=== PATIENT | male | born 1950 | race Caucasian/White ===

== ENCOUNTER → 2016-08-01 | Day surgery (SDC) | payer MEDICARE, OTHER ==
[~2016-08-01] MED LIST: BUPIVACAINE/EPINEPHRINE 0.25% 50 ML VIAL ONE; LACTATED RINGER'S 1000 ML INJ 1,000 ML ONE; LIDOCAINE 1%/EPINEPHrine 1:100,000 SOLN 50 ML VIAL ONE; MIDAZOLAM HCL 2 MG/2 ML VIAL ONE; MINERAL OIL 10 ML VIAL ONE; ONDANSETRON HCL 4 MG/2 ML VIAL IV PUSH ONE; PROPOFOL 200 MG/20 ML AMP IV ONE; SODIUM BICARBONATE 8.4% INJ 50 ML ONE; ceFAZolin 2 GM PREMIX 50 ML ONE
--- NOTE | 2016-08-01 12:38 | MP ---
cc: CHECO BENDER M.D. DATE OF SURGERY 08/01/2016 PREOPERATIVE DIAGNOSIS Basal cell carcinoma mid-upper back midline, large lesion. POSTOPERATIVE DIAGNOSIS Basal cell carcinoma mid-upper back midline, large lesion. OPERATION Wide local excision of basal cell carcinoma, 6-cm diameter excision, attempted frozen section and double rotation flap closure. SURGEON Dr. Bender. ANESTHESIA General. INDICATIONS A 65-year-old white male with a large ulcerated, fungating biopsy-proven basal cell carcinoma of the upper thoracic midline spine area. The lesion is approximately 1.5 cm ulcerated and about 2.5 cm palpable lesion and a margin of 1 cm was taken more so in the vertical portion as well. The patient was explained the overall surgery, excision and frozen section process. The frozen section could not be done, according to the pathologist, because of the large size of the specimen and too much fatty tissue. Only permanent section was sent. The closure required two double rotation flaps from each side. PROCEDURE The patient was brought to the operating room, was given supine position. Anesthesia was started in the supine position. He was turned prone on the table with adequate support. Prep and drape was done. Time-out was called and completed. The preoperative markings were reinforced. Tumescent solution of saline and lidocaine with epi was used to hydrodissect and for hemostasis. The specimen was taken from skin straight down to the fascia and the fascia was removed with the specimen as well leaving the bare muscle open. The specimen was suture marked superior and sent for frozen section. Two rotational flaps were outlined starting from 12 o'clock and the 6 o'clock position and going to 3 o'clock and 9 o'clock and slightly beyond as needed. The flaps were developed right down to the fascia and lifted off the fascia while assessing the overall positioning and tension on the flap. Once adequate release was obtained, the flaps were transposed and sutured with a combination of Vicryl and Prolene sutures. A Sonny drain was inserted through the entire pocket and brought out on both sides. The call received from the pathology department indicated that the specimen was too large and also too much fat to freeze and their recommendation was only to do a permanent section in order to avoid prolonged processing and artifact, etc. The patient remained stable through the surgery. Intraoperative blood loss 15-20 cc. No complications. signed, not fully reviewed MD ELVIRA Branch/EVER /9:24 AM /12:28 PM [facility]
== END | disposition home or self-care (01) ==
LOC: ESDC 06:56
PROVIDERS: ATTEND Plastic Surgery
DX: C44.519 Basal cell carcinoma of skin of other part of trunk (principal)
CPT/HCPCS: 00300; 14001; 88305; J0690; J2250; J2405; J3010; J7120

== ENCOUNTER 2017-02-02 21:59 | Inpatient (IN) | payer MEDICARE ==
[~2017-02-02] VITALS: Ht 188 cm; Wt 71.5 kg
[2017-02-02] MEDS ORDERED: IOHEXOL 350 MG/ML 10 ML VIAL (for RAD DIAG) IVCONTRAST ONE (22:00)
[2017-02-02 22:06] VITALS: BP 158/88; PULSE 74; RESP 16; TEMP 97.7; O2SAT 95
--- NOTE | 2017-02-02 22:22 | PD ---
HPI Chief Complaint: Abdominal Pain Time Seen by Provider: 22:10 Travel History International Travel<30 days: No Contact w/Intl Traveler<30days: No Traveled to known affect area: No History of Present Illness HPI 66-year-old male here for evaluation of abdominal pain. The patient presented for the last 9 hours he has been having moderate/intermittent/mid abdominal pain that he describes as cramping. There are no modifying factors. He did become nauseous and had a couple episodes of dry heaves. His last bowel movement was at 2 PM and was normal. History of inguinal hernia repair. No other abdominal surgeries. No fevers. No chest pain or dyspnea. No urinary symptoms. He reports that he had a colonoscopy 3 years ago and it was normal. [facility] Past Medical History Diabetes: Yes (DIET CONTROLLED) Patient Takes Glucophage: No Inguinal Hernia: Yes Past Surgical History Abdominal Surgery: Yes (INGUINAL HERNIA REPAIR) Social History Alcohol Use: Yes ([facility]) Tobacco Use: No Substance Use: No Allergies-Medications (Allergen,Severity, Reaction): Coded Allergies: No Known Allergies (Unverified , 02/02/17) Review of Systems Except as stated in HPI: all other systems reviewed are Neg Physical Exam Narrative GENERAL: Well-developed, well-nourished, comfortable, no apparent distress. SKIN: Focused skin assessment warm/dry. HEAD: Atraumatic. Normocephalic. EYES: Pupils equal and round. No scleral icterus. No injection or drainage. ENT: Mucous membranes pink and moist. NECK: Trachea midline. No JVD. CARDIOVASCULAR: Regular rate and rhythm. RESPIRATORY: No accessory muscle use. Clear to auscultation. Breath sounds equal bilaterally. GASTROINTESTINAL: Abdomen soft, nondistended. Moderate periumbilical tenderness without peritoneal signs. Rest of abdomen is soft and nontender. Normal bowel sounds. No hernias. MUSCULOSKELETAL: No obvious deformities. No clubbing. No cyanosis. No edema. NEUROLOGICAL: Awake and alert. No obvious cranial nerve deficits. Motor grossly within normal limits. Normal speech. PSYCHIATRIC: Appropriate mood and affect; insight and judgment normal. Data Data Last Documented VS Vital Signs Date Time Temp Pulse Resp B/P (MAP) Pulse Ox O2 Delivery O2 Flow Rate FiO2 02/02/17 23:45 14 02/02/17 22:30 95 Room Air 02/02/17 22:06 97.7 74 158/88 (111) Orders Orders Complete Blood Count With Diff (02/02/17 22:19) Comprehensive Metabolic Panel (02/02/17 22:19) Lipase (02/02/17 22:19) Prothrombin Time / Inr (Pt) (02/02/17 22:19) Act Partial Throm Time (Ptt) (02/02/17 22:19) Urinalysis - C+S If Indicated (02/02/17 22:19) Ct Abd/Pel W Iv Contrast(Rout) (02/02/17 22:19) Iv Access Insert/Monitor (02/02/17 22:19) Ecg Monitoring (02/02/17 22:19) Oximetry (02/02/17 22:19) Sodium Chloride 0.9% Flush (Ns Flush) (02/02/17 22:30) Morphine Inj (Morphine Inj) (02/02/17 23:00) Ondansetron Inj (Zofran Inj) (02/02/17 23:00) Iohexol 350 Inj (Omnipaque 350 Inj) (02/02/17 22:00) [place]-Gastric Tube Insert/Mon (02/03/17 00:06) Chest, Single Ap (02/03/17 ) Diet Npo (02/03/17 Breakfast) Admit Order (Ed Use Only) (02/03/17 00:37) Consult General Surgery (02/03/17 ) (Hub Use Only)Inp Phy Cons/Ref (02/03/17 ) Labs Laboratory Tests Test 02/02/17 22:35 White Blood Count 11.4 TH/MM3 Red Blood Count 4.92 MIL/MM3 Hemoglobin 14.5 GM/DL Hematocrit 43.6 % Mean Corpuscular Volume 88.7 FL Mean Corpuscular Hemoglobin 29.5 PG Mean Corpuscular Hemoglobin Concent 33.3 % Red Cell Distribution Width 13.0 % Platelet Count 165 TH/MM3 Mean Platelet Volume 8.5 FL Neutrophils (%) (Auto) 86.4 % Lymphocytes (%) (Auto) 6.8 % Monocytes (%) (Auto) 4.1 % Eosinophils (%) (Auto) 0.2 % Basophils (%) (Auto) 2.5 % Neutrophils # (Auto) 9.9 TH/MM3 Lymphocytes # (Auto) 0.8 TH/MM3 Monocytes # (Auto) 0.5 TH/MM3 Eosinophils # (Auto) 0.0 TH/MM3 Basophils # (Auto) 0.3 TH/MM3 CBC Comment DIFF FINAL Differential Comment Prothrombin Time 11.3 SEC Prothromb Time International Ratio 1.0 RATIO Activated Partial Thromboplast Time 26.8 SEC Urine Color YELLOW Urine Turbidity CLEAR Urine pH 6.5 Urine Specific Baird 1.026 Urine Protein NEG mg/dL Urine Glucose (UA) NEG mg/dL Urine Ketones 15 mg/dL Urine Occult Blood NEG Urine Nitrite NEG Urine Bilirubin NEG Urine Leukocyte Esterase NEG Urine RBC 0-2 /hpf Urine WBC 0-2 /hpf Urine Squamous Epithelial Cells 0-5 /hpf Urine Bacteria NONE /hpf Microscopic Urinalysis Comment CULT NOT INDICATED Blood Urea Nitrogen 21 MG/DL Creatinine 1.10 MG/DL Random Glucose 131 MG/DL Total Protein 6.9 GM/DL Albumin 3.7 GM/DL Calcium Level 8.6 MG/DL Alkaline Phosphatase 60 U/L Aspartate Amino Transf (AST/SGOT) 21 U/L Alanine Aminotransferase (ALT/SGPT) 29 U/L Total Bilirubin 0.6 MG/DL Sodium Level 132 MEQ/L Potassium Level 4.2 MEQ/L Chloride Level 99 MEQ/L Carbon Dioxide Level 25.4 MEQ/L Anion Gap 8 MEQ/L Estimat Glomerular Filtration Rate 67 ML/MIN Lipase 97 U/L MDM Medical Decision Making Medical Screen Exam Complete: Yes Emergency Medical Condition: Yes Differential Diagnosis Colitis, diverticulitis, appendicitis, peptic ulcer disease, pancreatitis, hepatobiliary disease, mesenteric ischemia Narrative Course Vital signs show heart rate 74, blood pressure 158/88, pulse ox 95% on room air , oral temp of 97.7F. CBC: WBC 11.4, hemoglobin 14.5, hematocrit 43.6, platelets 165, neutrophils 86.4 %. CMP: Sodium 132, otherwise unremarkable. Lipase is 97. UA shows 15 ketones, otherwise unremarkable, not suggestive of UTI. CT abdomen pelvis: CONCLUSION: 1. Dilated small bowel suggesting distal small bowel obstruction. No obstructing mass or lesion appreciated. No inflammatory process or free air. Small volume free fluid. 2. Elevated left hemidiaphragm. Patient and the patient's significant other were made aware of all findings. His pain has gone from a 6 out of 10 to 2 out of 10 after IV morphine. He has felt nauseous and has had a couple episodes of retching at home, however has not been vomiting. Plan is to place an NG tube and have the patient admitted for further treatment and evaluation of small bowel obstruction. Case discussed with [facility] hospitalist Dr Roberto. He requests that I contact the civil litigation attorney [facility] surgeon before admitting the patient. Case discussed with on lainey [facility] surgeon Dr Coreas. He agrees with plan for NG tube placement to low intermittent suction. He would like repeat labs as well as a KUB in the morning. He will see the patient in consultation. Case again discussed with Dr Roberto who will admit the patient to his service. He would like the patient to be admitted to the [facility] in [facility]. Procedures Procedure Narrative NG tube placement: Small amount of lubricant jelly was placed at the end of a 14 Pashto NG tube. NG tube was inserted slowly into the patient's right naris to the posterior pharynx. Patient was then asked to swallow water, and the tube passed into the patient's esophagus. Tube secured to the patient's nose. When area is flushed through the tube inserted over the area of the stomach. Postprocedural chest x- ray ordered to confirm NG tube placement. Diagnosis Primary Impression: Small bowel obstruction Admitting Information Admitting Physician Requests: Admit Karlos Garg MD Feb 02, 2017 22:22
[2017-02-02 22:30] VITALS: BP 141/88; PULSE 63; RESP 14; RESP 18; O2SAT 94; O2SAT 95
[2017-02-02] MEDS ORDERED: SODIUM CHLORIDE 0.9% FLUSH 10 ML FLUSH IV FLUSH PRN (22:30)
[2017-02-02 22:44] LABS: BLOOD, URINE NEG (NEG); GLUCOSE,URINE NEG (NEG); KETONE, URINE 15 mg/dL (NEG); NITRITE,URINE NEG (NEG); PH, URINE 6.5 (5.0-8.5)
[2017-02-02 22:46] LABS: AUTOMATED NEUTROPHIL # 9.9 TH/MM3 (1.8-7.7); BASOPHIL # 0.3 TH/MM3 (0-0.2); BASOPHIL % 2.5 % (0.0-2.0); EOSINOPHIL % 0.2 % (0.0-4.0); HEMATOCRIT 43.6 % (39.0-51.0); HEMO FLAGS DIFF FINAL; LYMPH % 6.8 % (9.0-44.0); LYMPHOCYTE # 0.8 TH/MM3 (1.0-4.8); MEAN CELL VOLUME 88.7 FL (80.0-100.0); MEAN CORPUSCULAR HEMOGLOBIN 29.5 PG (27.0-34.0); MEAN CORPUSCULAR HGB CONC 33.3 % (32.0-36.0); MONO % 4.1 % (0.0-8.0); NEUT % 86.4 % (16.0-70.0); PLATELET COUNT 165 TH/MM3 (150-450); RED BLOOD COUNT 4.92 MIL/MM3 (4.50-5.90); WHITE BLOOD COUNT 11.4 TH/MM3 (4.0-11.0)
[2017-02-02 22:49] LABS: URINE COLOR YELLOW (YELLW/STRAW)
[2017-02-02 22:50] LABS: COMMENT (UR) CULT NOT INDICATED; CULTURE IF INDICATED CULT NOT INDICATED; RBC, URINE 0-2 /hpf (0-3); SQUAMOUS EPITHELIAL CELL URINE 0-5 /hpf (0-5); WBC, URINE 0-2 /hpf (0-5)
[2017-02-02 22:52] LABS: CHLORIDE 99 MEQ/L (98-107); POTASSIUM 4.2 MEQ/L (3.5-5.1); SODIUM (NA) 132 MEQ/L (136-145)
[2017-02-02 22:56] LABS: ANION GAP 8 MEQ/L (5-15); BICARBONATE 25.4 MEQ/L (21.0-32.0)
[2017-02-02 22:57] LABS: BLOOD UREA NITROGEN 21 MG/DL (7-18)
[2017-02-02 22:58] LABS: APTT (PATIENT) 26.8 SEC (24.3-30.1); PROTHROMBIN TIME - PATIENT 11.3 SEC (9.8-11.6)
[2017-02-02 22:59] LABS: ALT (GPT) 29 U/L (12-78); AST (GOT) 21 U/L (15-37); GLOMERULAR FILTRATION RATE 67 ML/MIN (>89)
[2017-02-02] MEDS ORDERED: MORPHINE SULFATE 4 MG/ML INJ IV PUSH ONE (23:00)
[2017-02-02] MEDS ORDERED: ONDANSETRON HCL 4 MG/2 ML VIAL IV PUSH ONE (23:00)
[2017-02-02 23:01] LABS: TOTAL BILIRUBIN ADULT 0.6 MG/DL (0.2-1.0)
[2017-02-02 23:02] LABS: ALKALINE PHOSPHATASE 60 U/L (45-117)
--- NOTE | 2017-02-02 23:49 | RADRPT ---
EXAM DATE/TIME: 02/02/2017 23:10 [facility] COMPARISON: No previous studies available for comparison. INDICATIONS : Abdominal pain and cramping IV CONTRAST: 96 cc Omnipaque 350 (iohexol) IV ORAL CONTRAST: No oral contrast ingested. RADIATION DOSE: 7.6 CTDIvol (mGy) MEDICAL HISTORY : None SURGICAL HISTORY : Inguinal hernia repair. ENCOUNTER: Initial ACUITY: 1 day PAIN SCALE: 10/10 LOCATION: middle abdomen TECHNIQUE: Volumetric scanning of the abdomen and pelvis was performed. Using automated exposure control and ad justment of the mA and/or kV according to patient size, radiation dose was kept as low as reasonably achievable to obtain optimal diagnostic quality images. DICOM format image data is available electro nically for review and comparison. FINDINGS: LOWER LUNGS: The visualized lower lungs are clear. LIVER: Homogeneous density without lesion. There is no dilation of the biliary tree. No calcified gallston es. SPLEEN: Normal size without lesion. PANCREAS: Within normal limits. KIDNEYS: Normal in size and shape. There is no mass, stone or hydronephrosis. ADRENAL GLANDS: Within normal limits. VASCULAR: There is no aortic aneurysm. BOWEL/MESENTERY: Multiple dilated loops of fluid and gas-filled small bowel within the upper abdomen. This slowly tape rs within the left lower quadrant. No focal transition point observed. No inflammatory change appreci ated. The distal small bowel and colon are normal in caliber. A small amount of free fluid deep withi n the pelvis. No free air. ABDOMINAL WALL: Surgical clips suggesting prior left spigelian hernia repair. RETROPERITONEUM: There is no lymphadenopathy. BLADDER: No wall thickening or mass. REPRODUCTIVE: Within normal limits. INGUINAL: There is no lymphadenopathy or hernia. MUSCULOSKELETAL: Within normal limits for patient age. CONCLUSION: 1. Dilated small bowel suggesting distal small bowel obstruction. No obstructing mass or lesion appre ciated. No inflammatory process or free air. Small volume free fluid. 2. Elevated left hemidiaphragm. George Mcdaniel Jr., MD on February 02, 2017 at 23:44 Board Certified Radiologist. This report was verified electronically.
[2017-02-03] VITALS (10 sets, daily range): BP systolic 139–162; BP diastolic 84–95; PULSE 58–98; RESP 16–18; TEMP 96.3–97.3; O2SAT 93–97
--- NOTE | 2017-02-03 00:49 | RADRPT ---
EXAM DATE/TIME: 02/03/2017 00:37 [facility] COMPARISON: No previous studies available for comparison. INDICATIONS : Post NG tube placement. MEDICAL HISTORY : None. SURGICAL HISTORY : Inguinal hernia repair ENCOUNTER: Initial ACUITY: 1 day PAIN SCORE: 6/10 LOCATION: Bilateral buttock FINDINGS: A single view of the chest demonstrates the lungs to be symmetrically aerated without evidence of mas s, infiltrate or effusion. There is significant elevation of left hemidiaphragm. Nasogastric tube tip is seen within the body of the stomach which is elevated with hemidiaphragm. Gas-filled loops of bow el are seen below the left hemidiaphragm. The cardiomediastinal contours are unremarkable. Osseous structures are intact. CONCLUSION: 1. Clear lungs. 2. Elevated left hemidiaphragm. 3. Tip of the NG tube within the stomach. George Mcdaniel Jr., MD on February 03, 2017 at 0:46 Board Certified Radiologist. This report was verified electronically.
[2017-02-03] MEDS ORDERED: ONDANSETRON HCL 4 MG/2 ML VIAL IV PUSH PRN (01:15)
[2017-02-03] MEDS: MORPHINE SULFATE 2 MG/ML INJ IV PUSH PRN ×5 (05:49→22:19)
[2017-02-03 07:58] LABS: AUTOMATED NEUTROPHIL # 9.6 TH/MM3 (1.8-7.7); BASOPHIL % 0.2 % (0.0-2.0); EOSINOPHIL % 0.2 % (0.0-4.0); HEMATOCRIT 44.6 % (39.0-51.0); HEMO FLAGS DIFF FINAL; LYMPH % 9.3 % (9.0-44.0); LYMPHOCYTE # 1.1 TH/MM3 (1.0-4.8); MEAN CELL VOLUME 90.3 FL (80.0-100.0); MEAN CORPUSCULAR HEMOGLOBIN 29.9 PG (27.0-34.0); MEAN CORPUSCULAR HGB CONC 33.2 % (32.0-36.0); MONO % 6.2 % (0.0-8.0); NEUT % 84.1 % (16.0-70.0); PLATELET COUNT 162 TH/MM3 (150-450); RED BLOOD COUNT 4.95 MIL/MM3 (4.50-5.90); RED CELL DISTRIBUTION WIDTH 13.9 % (11.6-17.2); WHITE BLOOD COUNT 11.4 TH/MM3 (4.0-11.0)
--- NOTE | 2017-02-03 08:03 | RADRPT ---
EXAM DATE/TIME: 02/03/2017 07:53 [facility] COMPARISON: CHEST SINGLE AP, February 03, 2017, 0:37. INDICATIONS : Abdominal pain and cramping. Obstruction. MEDICAL HISTORY : None. SURGICAL HISTORY : Inguinal hernia repair. ENCOUNTER: Subsequent ACUITY: 2 days PAIN SCORE: 8/10 LOCATION: Bilateral abdomen FINDINGS: The examination demonstrates mild, diffuse gaseous distention of the small bowel and ascending colon. There is a moderate amount of stool within the ascending colon as well. There is an NG tube in good position. 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 There is contrast within the bladder. There surgical clips overlying the left lower quadrant of the p edgar. CONCLUSION: 1. Air-filled, minimally distended loops of predominantly small bowel suggesting ileus. There is gas and stool within the colon. No definite findings to indicate obstruction are seen. Elder Burdick MD on February 03, 2017 at 8:01 Board Certified Radiologist. This report was verified electronically.
[2017-02-03] MEDS ORDERED: DIATRIZOATE MEGLUM/DIATRIZOATE SOD 120 ML BTL (for RAD DIAG) NG ONE (08:50)
[2017-02-03] MEDS ORDERED: ACETAMINOPHEN 1000 MG/100 ML VIAL IV PRN (10:30)
--- NOTE | 2017-02-03 10:46 | HHI.HP ---
HPI Service [facility] Hospitalists Primary Care Physician Nash Desai MD Admission Diagnosis Small Bowel Obstruction Chief Complaint: Abdominal pain Travel History International Travel<30 Days: No Contact w/Intl Traveler <30 Da: No Traveled to Known Affected Are: No History of Present Illness Mr. Zhao is a pleasant 66 y/o WM without significant PMH other than osteoarthritis and he had a previous ventral hernia repair with mesh placement around 10 years ago who presented to the ED at [facility] [place] on 02/02/17 with complaints of significant abdominal pain and nausea with dry heaves. He states that he was in his normal state of health yesterday. He had eaten breakfast without any issues. Pt ate a ham and cheese sandwich for lunch yesterday and about an hour after he had eaten he started having increased lower abdominal cramping and nausea. He had a normal BM after this but this did not improve the pain. The pain/cramping seemed to worsen and he began having increased abdominal distension and nausea with dry heaves. This prompted him to go to the ED for further evaluation. CT Abd/pelvis in the ED revealed dilated small bowel suggesting distal small bowel obstruction, no obstructing mass or lesion appreciated, no inflammatory process or free air, small volume free fluid, and elevated left hemidiaphragm. Pt had an NGT placed in the ED and he was transferred to [facility] for general surgery evaluation. Pt reports that he is still having abd pain and cramping which is slightly relieved with the Morphine. Denies any flatus or vomiting. He currently has about 200cc of clear fluid in the NG canister. Pt denies any previous similar episodes. His states that the pt has had a weight loss of about 10lbs over the last 6-8 months but that the patient changed his diet and cut out a lot of the sugars and junk food he was eating and he has been working out a bit more because he was labeled as "pre-diabetic" in May 2016. Repeat KUB this morning noted air-filled, minimally distended loops of predominantly small bowel suggesting ileus, gas and stool within the colon but no definite findings to indicate obstruction are seen. Review of Systems Constitutional: COMPLAINS OF: Weight loss, DENIES: Fever, Dizziness Eyes: DENIES: Vision loss Ears, nose, mouth, throat: DENIES: Hearing loss Respiratory: DENIES: Cough, Shortness of breath Cardiovascular: DENIES: Palpitations, Lower Extremity Edema Gastrointestinal: COMPLAINS OF: Abdominal pain, Nausea, DENIES: Constipation, Diarrhea, Vomiting Genitourinary: DENIES: Dysuria Musculoskeletal: DENIES: Back pain Integumentary: DENIES: Rash Neurologic: DENIES: Headache Psychiatric: DENIES: Confusion Past Family Social History Past Medical History Osteoarthritis Hx of ventral hernia Past Surgical History Ventral hernia repair with mesh placement ~ 10 years ago Right knee surgery x 4 Left knee surgery x 1 BCC removal from trunk Tonsillectomy Colonoscopy ~ 2011, negative per the pt Reported Medications No prescribed home medications Allergies: Coded Allergies: No Known Allergies (Unverified , 02/02/17) Family History Daughter and mother with celiac disease Social History Occasional alcohol use, 2 beers and occasionally wine 2-3 times per week Denies any tobacco use Pt is and lives locally He work in computer software quality engineer Physical Exam Vital Signs Vital Signs Date Time Temp Pulse Resp B/P (MAP) Pulse Ox O2 Delivery O2 Flow Rate FiO2 02/03/17 08:00 97.3 63 17 148/91 (110) 94 02/03/17 02:50 97.1 60 17 158/92 (114) 94 02/03/17 02:15 68 16 145/87 (106) 94 02/03/17 01:35 16 02/03/17 01:30 58 16 142/84 (103) 93 Room Air 02/03/17 00:35 63 16 143/92 (109) 94 Room Air 02/02/17 23:45 14 02/02/17 22:30 14 95 Room Air 02/02/17 22:30 63 18 141/88 (105) 94 Room Air 02/02/17 22:06 97.7 74 16 158/88 (111) 95 Physical Exam GENERAL: This is a well-nourished, well-developed patient, in no apparent distress. HEENT: Atraumatic. Normocephalic. No temporal or scalp tenderness. No scleral icterus. Airway patent. NECK: Trachea midline, supple, nontender. CARDIO: Regular. RESP: CTA bilaterally. No wheezes, rales, or rhonchi. ABD: Minimal BS, soft, non-tender, nondistended. EXT: Extremities without clubbing, cyanosis, or edema. NEURO: Awake and alert. Motor and sensory grossly within normal limits. Normal speech. Laboratory Laboratory Tests Test 02/02/17 22:35 02/03/17 07:27 White Blood Count 11.4 11.4 Red Blood Count 4.92 4.95 Hemoglobin 14.5 14.8 Hematocrit 43.6 44.6 Mean Corpuscular Volume 88.7 90.3 Mean Corpuscular Hemoglobin 29.5 29.9 Mean Corpuscular Hemoglobin Concent 33.3 33.2 Red Cell Distribution Width 13.0 13.9 Platelet Count 165 162 Mean Platelet Volume 8.5 8.6 Neutrophils (%) (Auto) 86.4 84.1 Lymphocytes (%) (Auto) 6.8 9.3 Monocytes (%) (Auto) 4.1 6.2 Eosinophils (%) (Auto) 0.2 0.2 Basophils (%) (Auto) 2.5 0.2 Neutrophils # (Auto) 9.9 9.6 Lymphocytes # (Auto) 0.8 1.1 Monocytes # (Auto) 0.5 0.7 Eosinophils # (Auto) 0.0 0.0 Basophils # (Auto) 0.3 0.0 CBC Comment DIFF FINAL DIFF FINAL Differential Comment Prothrombin Time 11.3 Prothromb Time International Ratio 1.0 Activated Partial Thromboplast Time 26.8 Urine Color YELLOW Urine Turbidity CLEAR Urine pH 6.[address] [place] 1.026 Urine Protein NEG Urine Glucose (UA) NEG Urine Ketones 15 Urine Occult Blood NEG Urine Nitrite NEG Urine Bilirubin NEG Urine Leukocyte Esterase NEG Urine RBC 0-2 Urine WBC 0-2 Urine Squamous Epithelial Cells 0-5 Urine Bacteria NONE Microscopic Urinalysis Comment CULT NOT INDICATED Blood Urea Nitrogen 21 Creatinine 1.10 Random Glucose 131 Total Protein 6.9 Albumin 3.7 Calcium Level 8.6 Alkaline Phosphatase 60 Aspartate Amino Transf (AST/SGOT) 21 Alanine Aminotransferase (ALT/SGPT) 29 Total Bilirubin 0.6 Sodium Level 132 Potassium Level 4.2 Chloride Level 99 Carbon Dioxide Level 25.4 Anion Gap 8 Estimat Glomerular Filtration Rate 67 Lipase 97 Result Diagram: 02/03/1772602/02/172234 Imaging Last Impressions Abdomen X-Ray 02/03/17699 Signed Impressions: Service Date/Time: Friday, February 03, 2017 07:53 - CONCLUSION: 1. Air-filled, minimally distended loops of predominantly small bowel suggesting ileus. There is gas and stool within the colon. No definite findings to indicate obstruction are seen. Elder Burdick MD Chest X-Ray 02/03/17 0000 Signed Impressions: Service Date/Time: Friday, February 03, 2017 00:37 - CONCLUSION: 1. Clear lungs. 2. Elevated left hemidiaphragm. 3. Tip of the NG tube within the stomach. George Mcdaniel Jr., MD Abdomen/Pelvis CT 02/02/17 2219 Signed Impressions: Service Date/Time: Thursday, February 02, 2017 23:10 - CONCLUSION: 1. Dilated small bowel suggesting distal small bowel obstruction. No obstructing mass or lesion appreciated. No inflammatory process or free air. Small volume free fluid. 2. Elevated left hemidiaphragm. George Mcdaniel Jr., MD Septic Shock Reassessment Heart: Regular rate and rhythm Lungs: Clear Skin: Warm Caprini VTE Risk Assessment Caprini VTE Risk Assessment: Mod/High Risk (score >= 2) Caprini Risk Assessment Model Point Value = 1 Point Value = 2 Point Value = 3 Point Value = 5 Age 41-60 Minor surgery BMI > 25 kg/m2 Swollen legs Varicose veins or History of unexplained or recurrent spontaneous Oral contraceptives or hormone replacement Sepsis (< 1 month) Serious lung disease, including pneumonia (< 1 month) Abnormal pulmonary function Acute myocardial infarction Congestive heart failure (< 1 month) History of inflammatory bowel disease Medical patient at bed rest Age 61-74 Arthroscopic surgery Major open surgery (> 45 min) Laparoscopic surgery (> 45 min) Malignancy Confined to bed (> 72 hours) Immobilizing plaster cast Central venous access Age >= 75 History of VTE Family history of VTE Factor V Leiden Prothrombin [id number] Lupus anticoagulant Anticardiolipin antibodies Elevated serum homocysteine Heparin-induced thrombocytopenia Other congenital or acquired thrombophilia Stroke (< 1 month) Elective arthroplasty Hip, pelvis, or leg fracture Acute spinal cord injury (< 1 month) Prophylaxis Regimen Total Risk Factor Score Risk Level Prophylaxis Regimen 0-1 Low Early ambulation 2 Moderate Order ONE of the following: *Sequential Compression Device (SCD) *Heparin 5000 units SQ BID 3-4 Higher Order ONE of the following medications: *Heparin 5000 units SQ TID *Enoxaparin/Lovenox 40 mg SQ daily (WT < 150 kg, CrCl > 30 mL/min) *Enoxaparin/Lovenox 30 mg SQ daily (WT < 150 kg, CrCl > 10-29 mL/min) *Enoxaparin/Lovenox 30 mg SQ BID (WT < 150 kg, CrCl > 30 mL/min) AND/OR *Sequential Compression Device (SCD) 5 or more Highest Order ONE of the following medications: *Heparin 5000 units SQ TID (Preferred with Epidurals) *Enoxaparin/Lovenox 40 mg SQ daily (WT < 150 kg, CrCl > 30 mL/min) *Enoxaparin/Lovenox 30 mg SQ daily (WT < 150 kg, CrCl > 10-29 mL/min) *Enoxaparin/Lovenox 30 mg SQ BID (WT < 150 kg, CrCl > 30 mL/min) AND *Sequential Compression Device (SCD) Assessment and Plan Problem List: (1) Small bowel obstruction ICD Codes: K56.609 - Unspecified intestinal obstruction, unspecified as to partial versus complete obstruction Status: Acute Plan: - Pt is a 66 y/o WM without significant PMH other than osteoarthritis and he had a previous ventral hernia repair with mesh placement around 10 years ago who presented to the ED at [facility] [place] on 02/02/17 with complaints of significant abdominal pain and nausea with dry heaves that began suddenly that day. - CT Abd/pelvis (02/02) --> dilated small bowel suggesting distal small bowel obstruction, no obstructing mass or lesion appreciated, no inflammatory process or free air, small volume free fluid, and elevated left hemidiaphragm. - Pt had an NGT placed in the ED and he was transferred to [facility] for general surgery evaluation. Pt currently has about 200cc of clear fluid in the NGT canister. - Repeat KUB this morning noted air-filled, minimally distended loops of predominantly small bowel suggesting ileus, gas and stool within the colon but no definite findings to indicate obstruction are seen. - Cont. NGT to LIWS - Await general Surgery consultation - Pt is NPO - IVF - Pain control PRN - Antiemetics PRN - Bowel rest - Supportive care - DVT prophylaxis with SCDs Assessment and Plan Patient examined. Assessment and plan formulated with Alice Arboleda PA-C. I agree with the above. sbo. ngt to liws. still n/v. zofran. prn morphine ivf. await surgical intervention. reviewed imaging with pt/ Physician Certification 2 Midnight Certification Type: Admission for Inpatient Services Order for Inpatient Services The services are ordered in accordance with Medicare regulations or non- Medicare payer requirements, as applicable. In the case of services not specified as inpatient-only, they are appropriately provided as inpatient services in accordance with the 2-midnight benchmark. Estimated LOS (days): 2 2 days is the estimated time the patient will need to remain in the hospital, assuming treatment plan goals are met and no additional complications. Post-Hospital Plan: Not yet determined Alice Arboleda Feb 03, 2017 10:46 Mark Barboza MD Feb 03, 2017 13:13
[2017-02-03] MEDS: SODIUM CHLOR 0.9% 1000 ML INJ 1,000 ML IV SCH ×2 (11:18→20:30)
[2017-02-03] MEDS: ONDANSETRON HCL 4 MG/2 ML VIAL IV PUSH PRN ×2 (17:48→22:23)
[2017-02-04] VITALS (7 sets, daily range): BP systolic 135–155; BP diastolic 73–93; PULSE 70–93; RESP 16–19; TEMP 96.5–98.9; O2SAT 92–94
--- NOTE | 2017-02-04 00:04 | RADRPT ---
EXAM DATE/TIME: 02/03/2017 17:31 [facility] COMPARISON: No previous studies available for comparison. INDICATIONS : Abdominal pain, FLUORO TIME: 0 minutes IMAGE COUNT: 8 CONTRAST: MD Mann IMAGING TIME(S): 15 min, 30 min, 45 min, 1 hr, 2 hr, 4 hrs8 hours MEDICAL HISTORY : None. SURGICAL HISTORY : Inguinal hernia repair. ENCOUNTER: Initial ACUITY: 1 day PAIN SCORE: 7/10 LOCATION: Bilateral Abdominal FINDINGS: Preliminary film shows dilated loops of gas-filled small bowel throughout the abdomen. Gas stool is s een scattered throughout normal caliber colon. Intravenous contrast is seen within the urinary bladde r. Images out to 8 hours show the oral contrast opacifying dilated loops of small bowel. At 8 hours no o ral contrast is seen within the colon. CONCLUSION: Dilated small bowel without oral contrast within the colon at 8 hours. This is worrisome for a distal small bowel obstruction. Consideration could be made to a long-term delay abdominal x-ray to evaluat e for eventual opacification of the colon. George Mcdaniel Jr., MD on February 03, 2017 at 23:57 Board Certified Radiologist. This report was verified electronically.
[2017-02-04] MEDS: MORPHINE SULFATE 2 MG/ML INJ IV PUSH PRN ×6 (02:30→23:50)
[2017-02-04] MEDS: ONDANSETRON HCL 4 MG/2 ML VIAL IV PUSH PRN ×6 (02:30→23:50)
--- NOTE | 2017-02-04 06:00 | RADRPT ---
EXAM DATE/TIME: 02/04/2017 05:03 [facility] COMPARISON: SMALL BOWEL SERIES W/GASTROGRAFIN, February 03, 2017, 17:31. ABDOMEN KUB ONLY, February 03, 2017, 7:53 . INDICATIONS : Ileus. MEDICAL HISTORY : None. SURGICAL HISTORY : Inguinal hernia repair ENCOUNTER: Subsequent ACUITY: 2 days PAIN SCORE: 6/10 LOCATION: abdomen FINDINGS: A supine frontal view of the abdomen shows oral contrast throughout dilated loops of small bowel. No oral contrast seen within the colon. Intravenous contrast noted within the urinary bladder. CONCLUSION: No oral contrast within the colon. Persistent dilatation of the small bowel. George Mcdaniel Jr., MD on February 04, 2017 at 5:58 Board Certified Radiologist. This report was verified electronically.
[2017-02-04] MEDS: SODIUM CHLOR 0.9% 1000 ML INJ 1,000 ML IV SCH ×3 (06:20→23:00)
[2017-02-04 07:52] LABS: AUTOMATED NEUTROPHIL # 14.3 TH/MM3 (1.8-7.7); BASOPHIL # 0.2 TH/MM3 (0-0.2); HEMATOCRIT 47.8 % (39.0-51.0); HEMO FLAGS DIFF FINAL; LYMPH % 4.2 % (9.0-44.0); LYMPHOCYTE # 0.7 TH/MM3 (1.0-4.8); MEAN CELL VOLUME 90.7 FL (80.0-100.0); MEAN CORPUSCULAR HEMOGLOBIN 30.5 PG (27.0-34.0); MEAN CORPUSCULAR HGB CONC 33.6 % (32.0-36.0); MONO % 5.7 % (0.0-8.0); NEUT % 89.1 % (16.0-70.0); PLATELET COUNT 176 TH/MM3 (150-450); RED BLOOD COUNT 5.27 MIL/MM3 (4.50-5.90)
[2017-02-04 08:12] LABS: BICARBONATE 28.7 MEQ/L (21.0-32.0); MAGNESIUM 2.4 MG/DL (1.5-2.5); POTASSIUM 4.3 MEQ/L (3.5-5.1)
--- NOTE | 2017-02-04 09:46 | HHI.PR ---
Subjective Remarks Pt still with abdominal pain and vomiting last night. No flatus or BM NGT is currently clamped. Objective Vitals Vital Signs Date Time Temp Pulse Resp B/P (MAP) Pulse Ox O2 Delivery O2 Flow Rate FiO2 02/04/17 08:00 96.5 85 16 135/86 (102) 93 02/04/17 07:30 70 02/04/17 03:25 98.9 93 18 145/90 (108) 92 02/03/17 23:45 97.2 98 18 155/91 (112) 96 02/03/17 19:39 96.8 98 18 139/95 (110) 97 02/03/17 18:17 76 02/03/17 16:00 96.5 64 17 148/93 (111) 95 02/03/17 12:00 96.3 64 18 162/95 (117) 95 Result Diagram: 02/04/1771402/04/17714 Other Results Laboratory Tests Test 02/02/17 22:35 02/03/17 07:27 02/04/17 07:15 White Blood Count 11.4 TH/MM3 11.4 TH/MM3 16.0 TH/MM3 Red Blood Count 4.92 MIL/MM3 4.95 MIL/MM3 5.27 MIL/MM3 Hemoglobin 14.5 GM/DL 14.8 GM/DL 16.0 GM/DL Hematocrit 43.6 % 44.6 % 47.8 % Mean Corpuscular Volume 88.7 FL 90.3 FL 90.7 FL Mean Corpuscular Hemoglobin 29.5 PG 29.9 PG 30.5 PG Mean Corpuscular Hemoglobin Concent 33.3 % 33.2 % 33.6 % Red Cell Distribution Width 13.0 % 13.9 % 14.0 % Platelet Count 165 TH/MM3 162 TH/MM3 176 TH/MM3 Mean Platelet Volume 8.5 FL 8.6 FL 8.8 FL Neutrophils (%) (Auto) 86.4 % 84.1 % 89.1 % Lymphocytes (%) (Auto) 6.8 % 9.3 % 4.2 % Monocytes (%) (Auto) 4.1 % 6.2 % 5.7 % Eosinophils (%) (Auto) 0.2 % 0.2 % 0.0 % Basophils (%) (Auto) 2.5 % 0.2 % 1.0 % Neutrophils # (Auto) 9.9 TH/MM3 9.6 TH/MM3 14.3 TH/MM3 Lymphocytes # (Auto) 0.8 TH/MM3 1.1 TH/MM3 0.7 TH/MM3 Monocytes # (Auto) 0.5 TH/MM3 0.7 TH/MM3 0.9 TH/MM3 Eosinophils # (Auto) 0.0 TH/MM3 0.0 TH/MM3 0.0 TH/MM3 Basophils # (Auto) 0.3 TH/MM3 0.0 TH/MM3 0.2 TH/MM3 CBC Comment DIFF FINAL DIFF FINAL DIFF FINAL Differential Comment Prothrombin Time 11.3 SEC Prothromb Time International Ratio 1.0 RATIO Activated Partial Thromboplast Time 26.8 SEC Urine Color YELLOW Urine Turbidity CLEAR Urine pH 6.5 Urine Specific [place] 1.026 Urine Protein NEG mg/dL Urine Glucose (UA) NEG mg/dL Urine Ketones 15 mg/dL Urine Occult Blood NEG Urine Nitrite NEG Urine Bilirubin NEG Urine Leukocyte Esterase NEG Urine RBC 0-2 /hpf Urine WBC 0-2 /hpf Urine Squamous Epithelial Cells 0-5 /hpf Urine Bacteria NONE /hpf Microscopic Urinalysis Comment CULT NOT INDICATED Blood Urea Nitrogen 21 MG/DL 21 MG/DL Creatinine 1.10 MG/DL 1.33 MG/DL Random Glucose 131 MG/DL 130 MG/DL Total Protein 6.9 GM/DL Albumin 3.7 GM/DL Calcium Level 8.6 MG/DL 9.1 MG/DL Alkaline Phosphatase 60 U/L Aspartate Amino Transf (AST/SGOT) 21 U/L Alanine Aminotransferase (ALT/SGPT) 29 U/L Total Bilirubin 0.6 MG/DL Sodium Level 132 MEQ/L 139 MEQ/L Potassium Level 4.2 MEQ/L 4.3 MEQ/L Chloride Level 99 MEQ/L 103 MEQ/L Carbon Dioxide Level 25.4 MEQ/L 28.7 MEQ/L Anion Gap 8 MEQ/L 7 MEQ/L Estimat Glomerular Filtration Rate 67 ML/MIN 54 ML/MIN Lipase 97 U/L Magnesium Level 2.4 MG/DL Imaging Last Impressions Abdomen X-Ray 02/03/17 0700 Signed Impressions: Service Date/Time: Friday, February 03, 2017 07:53 - CONCLUSION: 1. Air-filled, minimally distended loops of predominantly small bowel suggesting ileus. There is gas and stool within the colon. No definite findings to indicate obstruction are seen. Elder Burdick MD Small Bowel X-Ray 02/03/17 0000 Signed Impressions: Service Date/Time: Friday, February 03, 2017 17:31 - CONCLUSION: Dilated small bowel without oral contrast within the colon at 8 hours. This is worrisome for a distal small bowel obstruction. Consideration could be made to a long-term delay abdominal x-ray to evaluate for eventual opacification of the colon. George Mcdaniel Jr., MD Chest X-Ray 02/03/17 0000 Signed Impressions: Service Date/Time: Friday, February 03, 2017 00:37 - CONCLUSION: 1. Clear lungs. 2. Elevated left hemidiaphragm. 3. Tip of the NG tube within the stomach. George Mcdaniel Jr., MD Abdomen/Pelvis CT 02/02/17 2219 Signed Impressions: Service Date/Time: Thursday, February 02, 2017 23:10 - CONCLUSION: 1. Dilated small bowel suggesting distal small bowel obstruction. No obstructing mass or lesion appreciated. No inflammatory process or free air. Small volume free fluid. 2. Elevated left hemidiaphragm. George Mcdaniel Jr., MD Objective Remarks General: NAD, AAOx3 Chest: CTA Cardiac: Regular Abd: Absent BS, non distended, lower abdominal tenderness Ext: No edema A/P Problem List: (1) Small bowel obstruction ICD Codes: K56.609 - Unspecified intestinal obstruction, unspecified as to partial versus complete obstruction Status: Acute Plan: - Pt is a 66 y/o WM without significant PMH other than osteoarthritis and he had a previous ventral hernia repair with mesh placement around 10 years ago who [place] [facility] with complaints of significant abdominal pain and nausea with dry heaves that began suddenly that day. - CT Abd/pelvis (02/02) --> dilated small bowel suggesting distal small bowel obstruction, no obstructing mass or lesion appreciated, no inflammatory process or free air, small volume free fluid, and elevated left hemidiaphragm. - Pt had an NGT placed in the ED and he was transferred to [facility] for general surgery evaluation. - Repeat KUB (02/03)--> air-filled, minimally distended loops of predominantly small bowel suggesting ileus, gas and stool within the colon but no definite findings to indicate obstruction are seen. - NGT was clamped last night. - Appreciate General Surgery consultation - SBFT (02/04) --> Dilated small bowel without oral contrast within the colon at 8 hours. This is worrisome for a distal small bowel obstruction. Consideration could be made to a long-term delay abdominal x-ray to evaluate for eventual opacification of the colon. - Repeat KUB this morning (02/04) with NO oral contrast within the colon, persistent dilation of the small bowel. - Pt is NPO - Resume NGT to LIWS - IVF - Pain control PRN - Antiemetics PRN - Bowel rest - Supportive care - DVT prophylaxis with SCDs Assessment and Plan Patient examined. Assessment and plan formulated with Alice Arboleda PA-C. I agree with the above. small bowel obstruction. would appear to need surgery. f/u gen surg reccs. pain meds and ivf. ngt. updated pt and . Alice Arboleda Feb 04, 2017 09:46 Mark Barboza MD Feb 04, 2017 09:55
--- NOTE | 2017-02-04 11:19 | HHI.PR ---
Subjective Subjective Notes The patient was not shaded overnight and had at least 2 episodes of emesis. He has been much better since the nasogastric tube was opened to suction earlier this morning. He states his abdominal pain is better and he is had no further nausea or emesis. He has passed no flatus and has not had a bowel movement. Objective Vitals/I&O Vital Signs Date Time Temp Pulse Resp B/P (MAP) Pulse Ox O2 Delivery O2 Flow Rate FiO2 02/04/17 08:00 96.5 85 16 135/86 (102) 93 02/03/17 01:30 Room Air Labs Laboratory Tests Test 02/04/17 07:15 White Blood Count 16.0 Red Blood Count 5.27 Hemoglobin 16.0 Hematocrit 47.8 Mean Corpuscular Volume 90.7 Mean Corpuscular Hemoglobin 30.5 Mean Corpuscular Hemoglobin Concent 33.6 Red Cell Distribution Width 14.0 Platelet Count 176 Mean Platelet Volume 8.8 Neutrophils (%) (Auto) 89.1 Lymphocytes (%) (Auto) 4.2 Monocytes (%) (Auto) 5.7 Eosinophils (%) (Auto) 0.0 Basophils (%) (Auto) 1.0 Neutrophils # (Auto) 14.3 Lymphocytes # (Auto) 0.7 Monocytes # (Auto) 0.9 Eosinophils # (Auto) 0.0 Basophils # (Auto) 0.2 CBC Comment DIFF FINAL Differential Comment Blood Urea Nitrogen 21 Creatinine 1.33 Random Glucose 130 Calcium Level 9.1 Magnesium Level 2.4 Sodium Level 139 Potassium Level 4.3 Chloride Level 103 Carbon Dioxide Level 28.7 Anion Gap 7 Estimat Glomerular Filtration Rate 54 Radiology Last 72 hours Impressions Abdomen X-Ray 02/03/17 0700 Signed Impressions: Service Date/Time: Friday, February 03, 2017 07:53 - CONCLUSION: 1. Air-filled, minimally distended loops of predominantly small bowel suggesting ileus. There is gas and stool within the colon. No definite findings to indicate obstruction are seen. Elder Burdick MD Small Bowel X-Ray 02/03/17 0000 Signed Impressions: Service Date/Time: Friday, February 03, 2017 17:31 - CONCLUSION: Dilated small bowel without oral contrast within the colon at 8 hours. This is worrisome for a distal small bowel obstruction. Consideration could be made to a long-term delay abdominal x-ray to evaluate for eventual opacification of the colon. George Mcdaniel Jr., MD Chest X-Ray 02/03/17 0000 Signed Impressions: Service Date/Time: Friday, February 03, 2017 00:37 - CONCLUSION: 1. Clear lungs. 2. Elevated left hemidiaphragm. 3. Tip of the NG tube within the stomach. George Mcdaniel Jr., MD Abdomen/Pelvis CT 02/02/17 2219 Signed Impressions: Service Date/Time: Thursday, February 02, 2017 23:10 - CONCLUSION: 1. Dilated small bowel suggesting distal small bowel obstruction. No obstructing mass or lesion appreciated. No inflammatory process or free air. Small volume free fluid. 2. Elevated left hemidiaphragm. George Mcdaniel Jr., MD Cardiovascular: Regular Lungs: Clear Extremities: No edema Narrative Exam His abdomen is minimally distended and very slightly tympanitic. He has mild tenderness to palpation but no guarding or rebound tenderness. A/P Assessment and Plan Impression/plan: Patient has a small bowel obstruction as indicated on Gastrografin study. He still has air and stool in the colon but there is been no passage of contrast material into the colon overnight. I have informed the patient and his that he is going to require surgical intervention. He will be scheduled in the operating room later today or tomorrow depending on availability of an operating room for an urgent but not emergent operation. We will keep his nasogastric tube open to suction and I have increased his IV fluid significantly. Bereket Coreas MD Feb 04, 2017 11:19
[2017-02-04] MEDS: D5-LR + KCL 20 MEQ INJ 1,000 ML IV SCH ×3 (12:58→23:00)
[2017-02-04 18:00] LABS: AUTOMATED NEUTROPHIL # 12.8 TH/MM3 (1.8-7.7); BASOPHIL % 0.2 % (0.0-2.0); HEMATOCRIT 44.7 % (39.0-51.0); HEMO FLAGS DIFF FINAL; LYMPH % 4.5 % (9.0-44.0); LYMPHOCYTE # 0.7 TH/MM3 (1.0-4.8); MEAN CELL VOLUME 90.7 FL (80.0-100.0); MEAN CORPUSCULAR HEMOGLOBIN 30.5 PG (27.0-34.0); MEAN CORPUSCULAR HGB CONC 33.6 % (32.0-36.0); MONO % 7.6 % (0.0-8.0); NEUT % 87.7 % (16.0-70.0); PLATELET COUNT 163 TH/MM3 (150-450); RED BLOOD COUNT 4.92 MIL/MM3 (4.50-5.90); RED CELL DISTRIBUTION WIDTH 14.1 % (11.6-17.2); WHITE BLOOD COUNT 14.6 TH/MM3 (4.0-11.0)
[2017-02-05] MEDS: D5-LR + KCL 20 MEQ INJ 1,000 ML IV SCH ×4 (03:24→23:56)
[2017-02-05] MEDS: ONDANSETRON HCL 4 MG/2 ML VIAL IV PUSH PRN ×2 (04:00→07:35)
[2017-02-05] MEDS: MORPHINE SULFATE 2 MG/ML INJ IV PUSH PRN ×2 (04:00→07:36)
[2017-02-05 04:10] VITALS: BP 162/105; PULSE 77; RESP 18; TEMP 96.4; O2SAT 94
[2017-02-05 08:00] VITALS: BP 173/90; PULSE 79; RESP 21; TEMP 96.5; O2SAT 97
--- NOTE | 2017-02-05 09:20 | RADRPT ---
EXAM DATE/TIME: 02/05/2017 08:18 [facility] COMPARISON: ABDOMEN KUB ONLY, February 04, 2017, 5:03. INDICATIONS : Constipation. Obstruction. No bowel movement for 4 days. MEDICAL HISTORY : None. SURGICAL HISTORY : Inguinal hernia repair. ENCOUNTER: Initial ACUITY: 4 - 6 days PAIN SCORE: 0/10 LOCATION: Bilateral abdomen FINDINGS: There is an NGT in the stomach. Previousl contrast is not demonstrated in the ascending colon. Redemo nstration of numerous loops of distended small bowel with multiple air-fluid levels. No significant f ree air or pneumatosis. Remainder of the exam is unchanged. CONCLUSION: 1. Oral contrast now noted in the ascending colon. 2. Persistent partial small bowel obstruction bowel gas pattern. Rojelio Morgan MD on February 05, 2017 at 9:15 Board Certified Radiologist. This report was verified electronically.
[2017-02-05] MEDS ORDERED: BUPIVACAINE/EPINEPHRINE 0.25% 50 ML VIAL ONE (11:21)
--- NOTE | 2017-02-05 11:31 | HHI.PR ---
Subjective Subjective Notes Still feels poorly. Having crampy abdominal pain. He is not having flatus or stool. KUB did show some contrast in ascending colon but still lots of air fluid levels. Objective Vitals/I&O Vital Signs Date Time Temp Pulse Resp B/P (MAP) Pulse Ox O2 Delivery O2 Flow Rate FiO2 02/05/17 08:00 96.5 79 21 173/90 (117) 97 02/03/17 01:30 Room Air Labs Laboratory Tests Test 02/04/17 17:22 02/05/17 10:45 White Blood Count 14.6 Red Blood Count 4.92 Hemoglobin 15.0 Hematocrit 44.7 Mean Corpuscular Volume 90.7 Mean Corpuscular Hemoglobin 30.5 Mean Corpuscular Hemoglobin Concent 33.6 Red Cell Distribution Width 14.1 Platelet Count 163 Mean Platelet Volume 8.8 Neutrophils (%) (Auto) 87.7 Lymphocytes (%) (Auto) 4.5 Monocytes (%) (Auto) 7.6 Eosinophils (%) (Auto) 0.0 Basophils (%) (Auto) 0.2 Neutrophils # (Auto) 12.8 Lymphocytes # (Auto) 0.7 Monocytes # (Auto) 1.1 Eosinophils # (Auto) 0.0 Basophils # (Auto) 0.0 CBC Comment DIFF FINAL Differential Comment Radiology Last 72 hours Impressions Abdomen X-Ray 02/03/17 0700 Signed Impressions: Service Date/Time: Friday, February 03, 2017 07:53 - CONCLUSION: 1. Air-filled, minimally distended loops of predominantly small bowel suggesting ileus. There is gas and stool within the colon. No definite findings to indicate obstruction are seen. Elder Burdick MD Small Bowel X-Ray 02/03/17 0000 Signed Impressions: Service Date/Time: Friday, February 03, 2017 17:31 - CONCLUSION: Dilated small bowel without oral contrast within the colon at 8 hours. This is worrisome for a distal small bowel obstruction. Consideration could be made to a long-term delay abdominal x-ray to evaluate for eventual opacification of the colon. George Mcdaniel Jr., MD Chest X-Ray 02/03/17 0000 Signed Impressions: Service Date/Time: Friday, February 03, 2017 00:37 - CONCLUSION: 1. Clear lungs. 2. Elevated left hemidiaphragm. 3. Tip of the NG tube within the stomach. George Mcdaniel Jr., MD Abdomen/Pelvis CT 02/02/17 2219 Signed Impressions: Service Date/Time: Thursday, February 02, 2017 23:10 - CONCLUSION: 1. Dilated small bowel suggesting distal small bowel obstruction. No obstructing mass or lesion appreciated. No inflammatory process or free air. Small volume free fluid. 2. Elevated left hemidiaphragm. George Mcdaniel Jr., MD Narrative Exam Uncomfortable Abd: mild distention, mild ttp, large volume NGT output/24h A/P Assessment and Plan 66 yo M h/o lap RIGHT inguinal hernia repair with bowel obstruction. Proceed to operating room now. I discussed surgery in detail with the patient and his and they desire to proceed. Gaston Momin MD Feb 05, 2017 11:31
[2017-02-05 11:32] LABS: BASOPHIL % 0.1 % (0.0-2.0); HEMATOCRIT 44.7 % (39.0-51.0); HEMO FLAGS DIFF FINAL; LYMPH % 5.8 % (9.0-44.0); LYMPHOCYTE # 0.7 TH/MM3 (1.0-4.8); MEAN CELL VOLUME 91.2 FL (80.0-100.0); MEAN CORPUSCULAR HEMOGLOBIN 29.9 PG (27.0-34.0); MEAN CORPUSCULAR HGB CONC 32.7 % (32.0-36.0); MONO % 7.7 % (0.0-8.0); NEUT % 86.4 % (16.0-70.0); PLATELET COUNT 161 TH/MM3 (150-450); RED CELL DISTRIBUTION WIDTH 14.3 % (11.6-17.2); WHITE BLOOD COUNT 11.6 TH/MM3 (4.0-11.0)
[2017-02-05] MEDS ORDERED: FAMOTIDINE 20 MG/2 ML VIAL ONE (11:42)
[2017-02-05 11:47] LABS: BICARBONATE 30.9 MEQ/L (21.0-32.0); MAGNESIUM 2.3 MG/DL (1.5-2.5); POTASSIUM 4.3 MEQ/L (3.5-5.1)
[2017-02-05 12:00] VITALS: BP 166/82; PULSE 74; RESP 19; TEMP 96; O2SAT 94
[2017-02-05] MEDS ORDERED: ROCURONIUM INJ 50 MG/5 ML SYRINGE IV PUSH ONE (12:00)
[2017-02-05] MEDS ORDERED: DEXAMETHASONE SOD PHOS 4 MG/ML VIAL IV ONE (12:00)
[2017-02-05] MEDS ORDERED: LIDOCAINE HCL 1% PF 5 ML AMPULE OTHER ONE (12:00)
[2017-02-05] MEDS ORDERED: GLYCOPYRROLATE 1 MG/5 ML SYRINGE IV PUSH ONE (12:00)
[2017-02-05] MEDS ORDERED: PROPOFOL 200 MG/20 ML AMP IV ONE (12:00)
[2017-02-05] MEDS ORDERED: SUCCINYLCHOLINE CHLORIDE 100 MG/5 ML SYRINGE IV PUSH ONE (12:00)
[2017-02-05] MEDS ORDERED: LACTATED RINGER'S 1000 ML INJ 1,000 ML IV ONE (12:00)
[2017-02-05] MEDS ORDERED: ePHEDrine/NS 25 MG/5 ML SYR IV ONE (12:00)
[2017-02-05] MEDS ORDERED: MIDAZOLAM HCL 2 MG/2 ML VIAL IV ONE (12:00)
[2017-02-05] MEDS ORDERED: PHENYLEPH/NS 1000 MCG/10 ML SYR IV ONE (12:00)
[2017-02-05] MEDS ORDERED: NEOSTIGMINE 3 MG/3 ML SYR IV ONE (12:00)
[2017-02-05] MEDS ORDERED: ceFAZolin INJ 1,000 MG VIAL ONE (12:16)
[2017-02-05] MEDS ORDERED: MORPHINE SULFATE 2 MG/ML INJ IM PRN (13:00)
--- NOTE | 2017-02-05 13:05 | PD.OP ---
cc: Gaston Momin MD Operative Report Date of Surgery: Feb 05, 2017 Preoperative Diagnosis: (1) Small bowel obstruction Postoperative Diagnosis: (1) Small bowel obstruction Procedure: Diagnostic laparoscopy, lysis of adhesions Anesthesia: JYOTI Surgeon: Gaston Momin [facility] Coordinator(s): Thao POSADAS Operation and Findings: EBL: 5 cc Operative findings: The patient had a single adhesive band causing small bowel obstruction in the left lower abdomen. This was proximally 8 cm from the ileocecal valve. There was some mild ischemia of that area with a band was compressing the small bowel. This appeared to be viable and I opted to leave this in place. Procedure in detail: The patient was taken to the operating room placed in supine position. Gen. endotracheal anesthesia was induced. The abdomen was prepped and draped in usual sterile fashion and surgical timeout was performed to verify correct patient procedure and site. Local anesthetic was injected in skin and subcutaneous tissue in the left mid abdomen and a 5 mm incision created. The abdomen was entered directly with a 5 mm trocar and the laparoscope. The abdomen was insufflated to 15 mmHg with CO2 gas which the patient tolerated well. A second 5 mm port was placed in the upper midline and one in the right upper quadrant. The patient was placed in Trendelenburg position. Attention was turned to the lower abdomen and there is noted to be an adhesive band from the left lower abdominal wall obstructing small bowel. The band was sharply lysed. The small bowel was evaluated and there was definitely an area of transition at this point which was about 8 cm from the ileocecal valve. The area where the band was compressing the small bowel was mildly ischemic. It did appear viable after reevaluation and the small bowel was left in place. A few other areas of adhesive bands which were not causing obstruction were taken down sharply. The small intestinal contents were passing through the area of the previous transition point. A small amount of serosanguineous fluid was suctioned from the pelvis. At this point the abdomen was desufflated and trochars removed. The skin was closed with subcuticular 4- 0 Monocryl and Dermabond. The patient tolerated the procedure well and was x- rayed and taken to PACU in stable condition. Gaston Momin MD Feb 05, 2017 13:05
[2017-02-05] MEDS ORDERED: DO NOT ADM ANY ANTICOAGULANT DRUGS PRN (13:12)
[2017-02-05 18:00] VITALS: BP 117/67; PULSE 69; RESP 17; TEMP 97.3; O2SAT 91
[2017-02-05 20:00] VITALS: BP 127/68; PULSE 69; RESP 18; TEMP 98.1; O2SAT 94
[2017-02-06] VITALS: BP 150/85; PULSE 73; RESP 18; TEMP 99.2; O2SAT 93
[2017-02-06 04:00] VITALS: BP 152/83; PULSE 73; RESP 18; TEMP 97.6; O2SAT 95
[2017-02-06] MEDS: D5-LR + KCL 20 MEQ INJ 1,000 ML IV SCH ×3 (05:37→18:44)
[2017-02-06 08:00] VITALS: BP 154/87; PULSE 67; RESP 17; TEMP 97.7; O2SAT 94
[2017-02-06 08:18] LABS: AUTOMATED NEUTROPHIL # 5.5 TH/MM3 (1.8-7.7); BASOPHIL % 0.2 % (0.0-2.0); EOSINOPHIL % 0.4 % (0.0-4.0); HEMATOCRIT 38.1 % (39.0-51.0); HEMO FLAGS DIFF FINAL; LYMPHOCYTE # 0.8 TH/MM3 (1.0-4.8); MEAN CELL VOLUME 91.4 FL (80.0-100.0); MEAN CORPUSCULAR HEMOGLOBIN 30.1 PG (27.0-34.0); MEAN CORPUSCULAR HGB CONC 32.9 % (32.0-36.0); MONO % 12.5 % (0.0-8.0); NEUT % 75.9 % (16.0-70.0); PLATELET COUNT 127 TH/MM3 (150-450); RED BLOOD COUNT 4.17 MIL/MM3 (4.50-5.90); RED CELL DISTRIBUTION WIDTH 14.2 % (11.6-17.2); WHITE BLOOD COUNT 7.3 TH/MM3 (4.0-11.0)
--- NOTE | 2017-02-06 08:23 | HHI.PR ---
Subjective Subjective Notes Has had a liquid BM. Feels much better. Requests removal of ng and benites. Objective Vitals/I&O Vital Signs Date Time Temp Pulse Resp B/P (MAP) Pulse Ox O2 Delivery O2 Flow Rate FiO2 02/06/17 04:00 97.6 73 18 152/83 (106) 95 02/05/17 17:00 Nasal Cannula 2 Labs Laboratory Tests Test 02/05/17 10:45 02/06/17 07:22 White Blood Count 11.6 Red Blood Count 4.90 Hemoglobin 14.6 Hematocrit 44.7 Mean Corpuscular Volume 91.2 Mean Corpuscular Hemoglobin 29.9 Mean Corpuscular Hemoglobin Concent 32.7 Red Cell Distribution Width 14.3 Platelet Count 161 Mean Platelet Volume 9.1 Neutrophils (%) (Auto) 86.4 Lymphocytes (%) (Auto) 5.8 Monocytes (%) (Auto) 7.7 Eosinophils (%) (Auto) 0.0 Basophils (%) (Auto) 0.1 Neutrophils # (Auto) 10.0 Lymphocytes # (Auto) 0.7 Monocytes # (Auto) 0.9 Eosinophils # (Auto) 0.0 Basophils # (Auto) 0.0 CBC Comment DIFF FINAL Differential Comment Blood Urea Nitrogen 25 Creatinine 1.32 Random Glucose 112 Calcium Level 8.7 Magnesium Level 2.3 Sodium Level 141 Potassium Level 4.3 Chloride Level 105 Carbon Dioxide Level 30.9 Anion Gap 5 Estimat Glomerular Filtration Rate 54 Radiology Last 72 hours Impressions Abdomen X-Ray 02/03/17 0700 Signed Impressions: Service Date/Time: Friday, February 03, 2017 07:53 - CONCLUSION: 1. Air-filled, minimally distended loops of predominantly small bowel suggesting ileus. There is gas and stool within the colon. No definite findings to indicate obstruction are seen. Elder Burdick MD Small Bowel X-Ray 02/03/17 0000 Signed Impressions: Service Date/Time: Friday, February 03, 2017 17:31 - CONCLUSION: Dilated small bowel without oral contrast within the colon at 8 hours. This is worrisome for a distal small bowel obstruction. Consideration could be made to a long-term delay abdominal x-ray to evaluate for eventual opacification of the colon. George Mcdaniel Jr., MD Chest X-Ray 02/03/17 0000 Signed Impressions: Service Date/Time: Friday, February 03, 2017 00:37 - CONCLUSION: 1. Clear lungs. 2. Elevated left hemidiaphragm. 3. Tip of the NG tube within the stomach. George Mcdaniel Jr., MD Abdomen/Pelvis CT 02/02/17 2219 Signed Impressions: Service Date/Time: Thursday, February 02, 2017 23:10 - CONCLUSION: 1. Dilated small bowel suggesting distal small bowel obstruction. No obstructing mass or lesion appreciated. No inflammatory process or free air. Small volume free fluid. 2. Elevated left hemidiaphragm. George Mcdaniel Jr., MD Narrative Exam NAD Abd: soft, inc c/d/i, ng min output A/P Assessment and Plan 66 yo M h/o lap RIGHT inguinal hernia repair with bowel obstruction, POD 1 s/p dx lap and MP Min NG output. + bowel fxn. D/c NG and benites. Fulls. Repeat bmp in am. Gaston Momin MD Feb 06, 2017 08:23
[2017-02-06] MEDS ORDERED: ACETAMINOPHEN/HYDROcodone 325 MG/5 MG TAB PO PRN ×2 (08:30)
[2017-02-06 08:46] LABS: BICARBONATE 29.5 MEQ/L (21.0-32.0); POTASSIUM 3.9 MEQ/L (3.5-5.1)
[2017-02-06 12:00] VITALS: BP 136/74; PULSE 59; RESP 17; TEMP 98.5; O2SAT 95
--- NOTE | 2017-02-06 15:20 | HHI.PR ---
Subjective Remarks Pt feeling much better today He is POD #1 from Exploratory Lap with MP Pt had NGT and Jeffery cath removed today and is currently tolerating full liquid diet He is passing some liquid stools and +flatus. Objective Vitals Vital Signs Date Time Temp Pulse Resp B/P (MAP) Pulse Ox O2 Delivery O2 Flow Rate FiO2 02/06/17 12:00 98.5 59 17 136/74 (94) 95 02/06/17 08:00 97.7 67 17 154/87 (109) 94 02/06/17 04:00 97.6 73 18 152/83 (106) 95 02/06/17 00:00 99.2 73 18 150/85 (106) 93 02/05/17 20:00 98.1 69 18 127/68 (87) 94 02/05/17 18:00 97.3 69 17 117/67 (84) 91 02/05/17 17:00 98.0 68 22 122/69 (86) 95 Nasal Cannula 2 02/05/17 16:00 65 22 123/66 (85) 95 Nasal Cannula 2 Result Diagram: 02/06/17 0722 02/06/17 0722 Other Results Laboratory Tests Test 02/04/17 17:22 02/05/17 10:45 02/06/17 07:22 White Blood Count 14.6 TH/MM3 11.6 TH/MM3 7.3 TH/MM3 Red Blood Count 4.92 MIL/MM3 4.90 MIL/MM3 4.17 MIL/MM3 Hemoglobin 15.0 GM/DL 14.6 GM/DL 12.5 GM/DL Hematocrit 44.7 % 44.7 % 38.1 % Mean Corpuscular Volume 90.7 FL 91.2 FL 91.4 FL Mean Corpuscular Hemoglobin 30.5 PG 29.9 PG 30.1 PG Mean Corpuscular Hemoglobin Concent 33.6 % 32.7 % 32.9 % Red Cell Distribution Width 14.1 % 14.3 % 14.2 % Platelet Count 163 TH/MM3 161 TH/MM3 127 TH/MM3 Mean Platelet Volume 8.8 FL 9.1 FL 8.5 FL Neutrophils (%) (Auto) 87.7 % 86.4 % 75.9 % Lymphocytes (%) (Auto) 4.5 % 5.8 % 11.0 % Monocytes (%) (Auto) 7.6 % 7.7 % 12.5 % Eosinophils (%) (Auto) 0.0 % 0.0 % 0.4 % Basophils (%) (Auto) 0.2 % 0.1 % 0.2 % Neutrophils # (Auto) 12.8 TH/MM3 10.0 TH/MM3 5.5 TH/MM3 Lymphocytes # (Auto) 0.7 TH/MM3 0.7 TH/MM3 0.8 TH/MM3 Monocytes # (Auto) 1.1 TH/MM3 0.9 TH/MM3 0.9 TH/MM3 Eosinophils # (Auto) 0.0 TH/MM3 0.0 TH/MM3 0.0 TH/MM3 Basophils # (Auto) 0.0 TH/MM3 0.0 TH/MM3 0.0 TH/MM3 CBC Comment DIFF FINAL DIFF FINAL DIFF FINAL Differential Comment Blood Urea Nitrogen 25 MG/DL 19 MG/DL Creatinine 1.32 MG/DL 1.00 MG/DL Random Glucose 112 MG/DL 119 MG/DL Calcium Level 8.7 MG/DL 7.9 MG/DL Magnesium Level 2.3 MG/DL 2.0 MG/DL Sodium Level 141 MEQ/L 142 MEQ/L Potassium Level 4.3 MEQ/L 3.9 MEQ/L Chloride Level 105 MEQ/L 107 MEQ/L Carbon Dioxide Level 30.9 MEQ/L 29.5 MEQ/L Anion Gap 5 MEQ/L 6 MEQ/L Estimat Glomerular Filtration Rate 54 ML/MIN 75 ML/MIN Imaging Last Impressions Abdomen X-Ray 02/03/17 0700 Signed Impressions: Service Date/Time: Friday, February 03, 2017 07:53 - CONCLUSION: 1. Air-filled, minimally distended loops of predominantly small bowel suggesting ileus. There is gas and stool within the colon. No definite findings to indicate obstruction are seen. Elder Burdick MD Small Bowel X-Ray 02/03/17 0000 Signed Impressions: Service Date/Time: Friday, February 03, 2017 17:31 - CONCLUSION: Dilated small bowel without oral contrast within the colon at 8 hours. This is worrisome for a distal small bowel obstruction. Consideration could be made to a long-term delay abdominal x-ray to evaluate for eventual opacification of the colon. George Mcdaniel Jr., MD Chest X-Ray 02/03/17 0000 Signed Impressions: Service Date/Time: Friday, February 03, 2017 00:37 - CONCLUSION: 1. Clear lungs. 2. Elevated left hemidiaphragm. 3. Tip of the NG tube within the stomach. George Mcdaniel Jr., MD Abdomen/Pelvis CT 02/02/179 Signed Impressions: Service Date/Time: Thursday, February 02, 2017 23:10 - CONCLUSION: 1. Dilated small bowel suggesting distal small bowel obstruction. No obstructing mass or lesion appreciated. No inflammatory process or free air. Small volume free fluid. 2. Elevated left hemidiaphragm. George Mcdaniel Jr., MD Objective Remarks General: NAD, AAOx3 Chest: CTA Cardiac: Regular Abd: Decreased BS, non distended, nontender, steri strips in place Ext: No edema A/P Problem List: (1) Small bowel obstruction ICD Codes: K56.609 - Unspecified intestinal obstruction, unspecified as to partial versus complete obstruction Status: Acute Plan: - Pt is a 66 y/o WM without significant PMH other than osteoarthritis and he had a previous ventral hernia repair with mesh placement around 10 years ago who presented to the ED at [facility] on 02/02/17 with complaints of significant abdominal pain and nausea with dry heaves that began suddenly that day. - CT Abd/pelvis (02/02) --> dilated small bowel suggesting distal small bowel obstruction, no obstructing mass or lesion appreciated, no inflammatory process or free air, small volume free fluid, and elevated left hemidiaphragm. - Pt had an NGT placed in the ED and he was transferred to [facility] for general surgery evaluation. - Repeat KUB (02/03)--> air-filled, minimally distended loops of predominantly small bowel suggesting ileus, gas and stool within the colon but no definite findings to indicate obstruction are seen. - NGT was clamped last night. - Appreciate General Surgery consultation - SBFT (02/04) --> Dilated small bowel without oral contrast within the colon at 8 hours. This is worrisome for a distal small bowel obstruction. Consideration could be made to a long-term delay abdominal x-ray to evaluate for eventual opacification of the colon. - Repeat KUB this morning (02/04) with NO oral contrast within the colon, persistent dilation of the small bowel. - Pt underwent Exploratory Lap with MP on 02/05/17 - He has been improving clinically and is tolerating full liquids diet - NGT removed and Jeffery out on 02/06 - Diet advancement per GS - Pain control PRN - Antiemetics PRN - Supportive care - Possible discharge to home tomorrow if tolerating diet. - DVT prophylaxis with SCDs Assessment and Plan Patient examined. Assessment and plan formulated with Alice Arboleda PA-C. I agree with the above. Alice Arboleda Feb 06, 2017 15:20 Noel Bhandari DO Feb 11, 2017 00:15
[2017-02-06 20:00] VITALS: BP 139/78; PULSE 60; RESP 18; TEMP 98.6; O2SAT 95
[2017-02-07] VITALS: BP 147/78; PULSE 61; RESP 18; TEMP 98.6; O2SAT 94
[2017-02-07] MEDS: D5-LR + KCL 20 MEQ INJ 1,000 ML IV SCH ×2 (00:08→03:53)
--- NOTE | 2017-02-07 07:37 | HHI.PR ---
Subjective Remarks pt says he is tolerating the full liquid diet, having no abdomen pain, having liquid stools and very eager for d/c. his is present and they want to go home. Objective Vitals heart reg lung cta abd nt/nd/few bs ext no edema Vital Signs Date Time Temp Pulse Resp B/P (MAP) Pulse Ox O2 Delivery O2 Flow Rate FiO2 02/07/17 00:00 98.6 61 18 147/78 (101) 94 02/06/17 20:00 98.6 60 18 139/78 (98) 95 02/06/17 12:00 98.5 59 17 136/74 (94) 95 02/06/17 08:00 97.7 67 17 154/87 (109) 94 Result Diagram: 02/06/1772102/06/17721 Imaging Last Impressions Abdomen X-Ray 02/03/17 0700 Signed Impressions: Service Date/Time: Friday, February 03, 2017 07:53 - CONCLUSION: 1. Air-filled, minimally distended loops of predominantly small bowel suggesting ileus. There is gas and stool within the colon. No definite findings to indicate obstruction are seen. Elder Burdick MD Small Bowel X-Ray 02/03/17 0000 Signed Impressions: Service Date/Time: Friday, February 03, 2017 17:31 - CONCLUSION: Dilated small bowel without oral contrast within the colon at 8 hours. This is worrisome for a distal small bowel obstruction. Consideration could be made to a long-term delay abdominal x-ray to evaluate for eventual opacification of the colon. George Mcdaniel Jr., MD Chest X-Ray 02/03/17 0000 Signed Impressions: Service Date/Time: Friday, February 03, 2017 00:37 - CONCLUSION: 1. Clear lungs. 2. Elevated left hemidiaphragm. 3. Tip of the NG tube within the stomach. George Mcdaniel Jr., MD Abdomen/Pelvis CT 02/02/17 6661 Signed Impressions: Service Date/Time: Thursday, February 02, 2017 23:10 - CONCLUSION: 1. Dilated small bowel suggesting distal small bowel obstruction. No obstructing mass or lesion appreciated. No inflammatory process or free air. Small volume free fluid. 2. Elevated left hemidiaphragm. George Mcdaniel Jr., MD A/P Problem List: (1) Small bowel obstruction ICD Codes: K56.609 - Unspecified intestinal obstruction, unspecified as to partial versus complete obstruction Status: Acute Plan: - Pt is a 66 y/o WM without significant PMH other than osteoarthritis and he had a previous ventral hernia repair with mesh placement around 10 years ago who presented to the ED at [facility] on 02/02/17 with complaints of significant abdominal pain and nausea with dry heaves that began suddenly that day. - CT Abd/pelvis (02/02) --> dilated small bowel suggesting distal small bowel obstruction, no obstructing mass or lesion appreciated, no inflammatory process or free air, small volume free fluid, and elevated left hemidiaphragm. - Pt had an NGT placed in the ED and he was transferred to [facility] for general surgery evaluation. - Repeat KUB (02/03)--> air-filled, minimally distended loops of predominantly small bowel suggesting ileus, gas and stool within the colon but no definite findings to indicate obstruction are seen. - NGT was clamped last night. - Appreciate General Surgery consultation - SBFT (02/04) --> Dilated small bowel without oral contrast within the colon at 8 hours. This is worrisome for a distal small bowel obstruction. Consideration could be made to a long-term delay abdominal x-ray to evaluate for eventual opacification of the colon. - Repeat KUB this morning (02/04) with NO oral contrast within the colon, persistent dilation of the small bowel. - Pt underwent Exploratory Lap with MP on 02/05/17 - He has been improving clinically and is tolerating full liquids diet - NGT removed and Jeffery out on 02/06 pt very eager for d/c today.stop ivf. advance diet per GS. Will place d/c orders pending eval today. discussed with RN. pt denies need for pain meds. Mark Barboza MD Feb 07, 2017 07:37
--- NOTE | 2017-02-07 07:38 | HHI.DCPOC ---
Discharge Care Plan Diagnosis: (1) Small bowel obstruction Goals to Promote Your Health * To prevent worsening of your condition and complications * To maintain your health at the optimal level Directions to Meet Your Goals Take your medications as prescribed Follow your dietary instruction Follow activity as directed Keep your appointments as scheduled Take your immunizations and boosters as scheduled If your symptoms worsen call your PCP, if no PCP go to Urgent Care Center or Emergency Room Smoking is Dangerous to Your Health. Avoid second hand smoke Call the 24-hour hour crisis hotline for domestic abuse at Mark Barboza MD Feb 07, 2017 07:38
[2017-02-07 08:00] VITALS: BP 159/74; PULSE 55; RESP 17; TEMP 96.4; O2SAT 96
[2017-02-07 09:19] LABS: BICARBONATE 28.1 MEQ/L (21.0-32.0); POTASSIUM 3.8 MEQ/L (3.5-5.1)
--- NOTE | 2017-02-07 15:29 | HHI.DS ---
Discharge Summary Admission Date Feb 03, 2017 at 00:38 Discharge Date: Feb 07, 2017 Admitting Diagnosis Small Bowel Obstruction (1) Small bowel obstruction ICD Codes: K56.609 - Unspecified intestinal obstruction, unspecified as to partial versus complete obstruction Status: Acute Consultants General surgery Dr. Coreas and Dr. Momin Procedures 02/05/17 Diagnostic Laparotomy with lysis of adhesions with Dr. Coreas Brief History Mr. Zhao is a pleasant 66 y/o WM without significant PMH other than osteoarthritis and he had a previous ventral hernia repair with mesh placement around 10 years ago who [place] [facility] [place] with complaints of significant abdominal pain and nausea with dry heaves. He states that he was in his normal state of health yesterday. He had eaten breakfast without any issues. Pt ate a ham and cheese sandwich for lunch yesterday and about an hour after he had eaten he started having increased lower abdominal cramping and nausea. He had a normal BM after this but this did not improve the pain. The pain/cramping seemed to worsen and he began having increased abdominal distension and nausea with dry heaves. This prompted him to go to the ED for further evaluation. CT Abd/pelvis in the ED revealed dilated small bowel suggesting distal small bowel obstruction, no obstructing mass or lesion appreciated, no inflammatory process or free air, small volume free fluid, and elevated left hemidiaphragm. Pt had an NGT placed in the ED and he was transferred to [facility] for general surgery evaluation. Pt reports that he is still having abd pain and cramping which is slightly relieved with the Morphine. Denies any flatus or vomiting. He currently has about 200cc of clear fluid in the NG canister. Pt denies any previous similar episodes. His states that the pt has had a weight loss of about 10lbs over the last 6-8 months but that the patient changed his diet and cut out a lot of the sugars and junk food he was eating and he has been working out a bit more because he was labeled as "pre-diabetic" in May 2016. Repeat KUB this morning noted air-filled, minimally distended loops of predominantly small bowel suggesting ileus, gas and stool within the colon but no definite findings to indicate obstruction are seen. CBC/BMP: 02/06/17 0722 02/07/17 0712 Significant Findings Laboratory Tests Test 02/04/17 17:22 02/05/17 10:45 02/06/17 07:22 02/07/17 07:12 White Blood Count 14.6 TH/MM3 (4.0-11.0) 11.6 TH/MM3 (4.0-11.0) Neutrophils (%) (Auto) 87.7 % (16.0-70.0) 86.4 % (16.0-70.0) 75.9 % (16.0-70.0) Lymphocytes (%) (Auto) 4.5 % (9.0-44.0) 5.8 % (9.0-44.0) Neutrophils # (Auto) 12.8 TH/MM3 (1.8-7.7) 10.0 TH/MM3 (1.8-7.7) Lymphocytes # (Auto) 0.7 TH/MM3 (1.0-4.8) 0.7 TH/MM3 (1.0-4.8) 0.8 TH/MM3 (1.0-4.8) Monocytes # (Auto) 1.1 TH/MM3 (0-0.9) Blood Urea Nitrogen 25 MG/DL (7-18) 19 MG/DL (7-18) Creatinine 1.32 MG/DL (0.60-1.30) Random Glucose 112 MG/DL (74-106) 119 MG/DL (74-106) Estimat Glomerular Filtration Rate 54 ML/MIN (>89) 75 ML/MIN (>89) 87 ML/MIN (>89) Red Blood Count 4.17 MIL/MM3 (4.50-5.90) Hemoglobin 12.5 GM/DL (13.0-17.0) Hematocrit 38.1 % (39.0-51.0) Platelet Count 127 TH/MM3 (150-450) Monocytes (%) (Auto) 12.5 % (0.0-8.0) Calcium Level 7.9 MG/DL (8.5-10.1) 8.1 MG/DL (8.5-10.1) Imaging Last Impressions Abdomen X-Ray 02/05/17 0600 Signed Impressions: Service Date/Time: Sunday, February 05, 2017 08:18 - CONCLUSION: 1. Oral contrast now noted in the ascending colon. 2. Persistent partial small bowel obstruction bowel gas pattern. Rojelio Bozorgmanesh, MD Small Bowel X-Ray 02/03/17 0000 Signed Impressions: Service Date/Time: Friday, February 03, 2017 17:31 - CONCLUSION: Dilated small bowel without oral contrast within the colon at 8 hours. This is worrisome for a distal small bowel obstruction. Consideration could be made to a long-term delay abdominal x-ray to evaluate for eventual opacification of the colon. George Mcdaniel Jr., MD Chest X-Ray 02/03/17 0000 Signed Impressions: Service Date/Time: Friday, February 03, 2017 00:37 - CONCLUSION: 1. Clear lungs. 2. Elevated left hemidiaphragm. 3. Tip of the NG tube within the stomach. George Mcdaniel Jr., MD Abdomen/Pelvis CT 02/02/17 2219 Signed Impressions: Service Date/Time: Thursday, February 02, 2017 23:10 - CONCLUSION: 1. Dilated small bowel suggesting distal small bowel obstruction. No obstructing mass or lesion appreciated. No inflammatory process or free air. Small volume free fluid. 2. Elevated left hemidiaphragm. George Mcdaniel Jr., MD Hospital Course Small bowel obstruction - Pt is a 66 y/o WM without significant PMH other than osteoarthritis and he had a previous ventral hernia repair with mesh placement around 10 years ago who presented [place] [facility] [place] with complaints of significant abdominal pain and nausea with dry heaves that began suddenly that day. - CT Abd/pelvis (02/02) --> dilated small bowel suggesting distal small bowel obstruction, no obstructing mass or lesion appreciated, no inflammatory process or free air, small volume free fluid, and elevated left hemidiaphragm. - Pt had an NGT placed in the ED and he was transferred to [facility] for general surgery evaluation. - Repeat KUB (02/03)--> air-filled, minimally distended loops of predominantly small bowel suggesting ileus, gas and stool within the colon but no definite findings to indicate obstruction are seen. - NGT was clamped last night. - Appreciate General Surgery consultation - SBFT (02/04) --> Dilated small bowel without oral contrast within the colon at 8 hours. This is worrisome for a distal small bowel obstruction. Consideration could be made to a long-term delay abdominal x-ray to evaluate for eventual opacification of the colon. - Repeat KUB this morning (02/04) with NO oral contrast within the colon, persistent dilation of the small bowel. - Pt underwent Exploratory Lap with MP on 02/05/17 - He has been improving clinically and is tolerating full liquids diet - NGT removed and [facility]no out on 02/06 - pt very eager for d/c today.stop ivf. advance diet per GS. d/c orders pending GS eval today (02/07/17). Patient cleared for DC by Dr. Momin general surgery - pt denies need for pain meds. Pt Condition on Discharge: Stable Discharge Disposition: Discharge Home Discharge Instructions DIET: Follow Instructions for: As Tolerated, No Restrictions, Low Residue Diet Activities you can perform: Regular-No Restrictions Follow up Referrals: Surgical - 2 Weeks with aGston Momin MD Additional Information no DC medications Patient examined. Assessment and plan formulated with Sandra Jarquin PA-C. I agree with the above. Sandra Jarquin Feb 07, 2017 15:29 Noel Bhandari DO Feb 11, 2017 00:16
== END 2017-02-07 11:20 | disposition home or self-care (01) | DRG 337 ==
LOC: PHED 21:59 → PHEDA 02-03 00:38 → N06A 02-03 02:35 → N07B 02-05 12:35 → N07A 02-05 17:24
PROVIDERS: ADMIT Hospitalist; ATTEND Hospitalist
PROC: 0DNC4ZZ Release Ileocecal Valve, Percutaneous Endoscopic Approach (ICD-10-PCS; principal; 2017-02-05 11:52)
DX: K56.50 Intestinal adhesions [bands], unspecified as to partial versus complete obstruction (principal); R73.03 Prediabetes
CPT/HCPCS: 43753; 71010; 74000; 74020; 74177; 74250; 80048; 80053; 81001; 83690; 83735; 85025; 85610; 85730; 96374; 96375; J0131; J0330; J0690; J1100; J2250; J2270; J2370; J2405; J2710; J3010; J3480; J7030; J7120; Q9963; Q9967